=== PATIENT | male | born 1980 | race Caucasian/White ===

== ENCOUNTER 2023-07-31 12:34 | Outpatient (CLI) | payer OTHER, SELFPAY ==
--- NOTE | ~2023-07-31 | XR_ITS ---
EXAMINATION: XR fl inj hip RT for MR/CT DATE: 07/31/2023 13:44 INDICATION: Right hip pain. TECHNIQUE: A time-out was performed to verify the patient's name, date of , and procedure to b e performed. The procedure including the risks, benefits, and alternatives was discussed with the pat ient. Risks discussed included bleeding and infection. The patient understood the risks and agreed to proceed. The skin overlying the right hip joint was prepped and draped in usual sterile fashion. An esthetic was administered with 1% lidocaine subcutaneously. A 22 G needle was advanced under fluoros copic guidance into the joint. Subsequently, injectate consisting of 9 mL of 1:200 Multihance, 1:4 1 % lidocaine, and 1:4 Omnipaque 240 was instilled. The needle was removed and the entry site was lulú denise and dressed. There were no immediate complications. Fluoroscopy exposure time was 0.1 minutes. T he total number of images was 1. FINDINGS: Real-time fluoroscopy demonstrates the needle and contrast in the right hip joint. IMPRESSION: 1. Successful fluoroscopy guided right hip joint injection of contrast for subsequent MR arthrography . Reviewed, dictated and finalized at location A. IMPRESSION: 1. Successful fluoroscopy guided right hip joint injection of contrast for subs equent MR arthrography.
--- NOTE | ~2023-07-31 | MR_ITS ---
EXAMINATION: MR hip RT w con DATE: 07/31/2023 14:15 INDICATION: Right hip pain TECHNIQUE: Magnetic resonance imaging (MRI) of the right hip was performed without intravenous contr ast. Sequences included full-field axial PD-weighted FS FSE and T1-weighted FSE, coronal of the pelvi s with PD-weighted FS FSE, small field of view of the right hip with axial PD-weighted FS FSE, sagitt al PD-weighted FS FSE and coronal PD weighted FS FSE. Additional radial T1-weighted FGR oriented orth ogonal to the acetabular rim were obtained for evaluation of the labrum. COMPARISON: None FINDINGS: Bones/labrum/cartilage: Alignment is normal. No fracture, avascular necrosis or pathologic marrow replacing process. Right a cetabular labrum is normal. Mild osteoarthritis at the right hip with posterior predominant nonunifor m joint space narrowing with with mild partial-thickness cartilage loss. Mild lumbar spondylosis. Fluid: Physiologic amount fluid in the contralateral left hip joint. Small amount of injected contrast which tracks cephalad along the right iliopsoas bursa likely resulting from small amount of extravasation along the tract of the needle. No bursitis or other abnormal fluid collections. Soft tissues: Normal and symmetric muscle bulk and signal in the pelvis and visualized proximal thighs. There is as ymmetric mild thickening and increased signal at the right iliopsoas tendon consistent with mild tend inopathy without discrete tear. The left iliopsoas tendon is normal. The bilateral gluteal and proxim al hamstring tendons are normal. Limited evaluation of visceral organs of the pelvis is unremarkable. No pathologically enlarged pelvic/inguinal lymphadenopathy. IMPRESSION: 1. Mild tendinopathy without tear at the distal right iliopsoas tendon. 2. Mild right hip osteoarthritis without evident labral tear. Reviewed, dictated and finalized at location A.
== END 2023-07-31 12:35 | disposition home or self-care (01) ==
LOC: ANHIMG 12:43
PROVIDERS: PCP Internal Medicine; Visit Provider Orthopaedic Surgery
DX: M76.11 Psoas tendinitis, right hip (principal); M16.11 Unilateral primary osteoarthritis, right hip
CPT/HCPCS: 20610; 73722; 77002; A9577; Q9966

== ENCOUNTER 2024-07-08 08:42 | Outpatient (CLI) | payer OTHER, SELFPAY ==
--- NOTE | ~2024-07-08 | MR_ITS ---
EXAMINATION: MR knee RT wo con DATE: 07/08/2024 09:20 INDICATION: Chronic right knee pain TECHNIQUE: Magnetic resonance imaging (MRI) of the right knee was performed without intravenous contr ast. Sequences included coronal PD-weighted FSE, coronal PD-weighted FS FSE, sagittal T2-weighted FS E, sagittal PD-weighted FS FSE and axial PD weighted fat saturated FSE. COMPARISON: None. FINDINGS: Medial compartment: Medial meniscus is normal. Articular cartilage is normal. Lateral compartment: Lateral meniscus is normal. Articular cartilage is normal. Patellofemoral compartment: There is deep chondral fissuring involving greater than 50% of the cartilage thickness but without de generative subchondral changes at the lateral patellar facet extending to the apical ridge as well as at the lateral side of the lateral trochlea.. Additional deep chondral fissuring with tiny central s ubchondral osteophyte at the caudal aspect of the trochlear groove. Ligaments and tendons: Anterior and posterior cruciate ligaments are normal. The medial collateral ligament and fibular marty ateral ligament complex are normal. There is mild distal patellar tendinopathy with mild hypertrophic change at its anterior tibial tubercle insertion as well as a few foci of susceptibility artifact in the overlying subcutaneous tissues consistent with prior surgery. Correlate with surgical history. Q uadriceps tendon is normal. The visualized medial and lateral hamstring tendons as well as the ilioti bial band are normal. Fluid: Physiologic amount of fluid in the joint space. No loose osteochondral bodies identified. Osseous/other: Normal marrow signal. No fracture or pathologic marrow replacing process. IMPRESSION: 1. 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 2. Distal patellar tendinopathy with postoperative change at its anterior tibial insertion. Correlate with surgical history. Reviewed, dictated and finalized at location B. IMPRESSION: 1. Mild patellofemoral osteoarthritis with relatively preserved joint space but with moderate grade patellar and moderate and high-grade trochlear chondromala roberto carlos. 2. Distal patellar tendinopathy with postoperative change at its anterior tibia l insertion. Correlate with surgical history.
== END 2024-07-08 08:43 | disposition home or self-care (01) ==
LOC: MICIMG 08:46
PROVIDERS: PCP Orthopaedic Surgery; Visit Provider Orthopaedic Surgery
DX: M17.11 Unilateral primary osteoarthritis, right knee (principal)
CPT/HCPCS: 73721